=== PATIENT | female | born 1985 | race Asian ===

== ENCOUNTER 2020-11-24 16:41 | Emergency (ER) | payer OTHER ==
[~2020-11-24] VITALS: Ht 162.6 cm; Wt 64.5 kg
--- NOTE | 2020-11-24 18:30 | PHYS DOC ---
Past History Past Medical History: No Pertinent History (PRICE CORREA APRN) Past Surgical History: (PRICE CORREA APRN) Alcohol Use: None (PRICE CORREA APRN) General Adult EDM: Chief Complaint: VAGINAL BLEEDING HPI: HPI: Patient is a 35-year-old female who presents with vaginal bleeding and . Patient states her last menstrual period was September 25. Patient is G3, P2. Patient denies cramping.[] 35-year-old female who presents with vaginal bleeding and . LMP 09/25. G3, P2. Patient states the bleeding started 4 days ago. Patient denies dysuria, odor, discharge. Patient has history of high cholesterol. (PRICE CORREA APRN) Review of Systems: Review of Systems: Constitutional: Denies fever or chills Eyes: Denies change in visual acuity HENT: Denies nasal congestion or sore throat Respiratory: Denies cough or shortness of breath Cardiovascular: Denies chest pain or edema GI: Denies abdominal pain, nausea, vomiting, bloody stools or diarrhea /Vaginal: Reports bleeding. Denies dysuria Musculoskeletal: Denies back pain or joint pain Integument: Denies rash Neurologic: Denies headache, focal weakness or sensory changes Endocrine: Denies polyuria or polydipsia Lymphatic: Denies swollen glands Psychiatric: Denies depression or anxiety (PRICE CORREA APRN) Allergies: Allergies: Allergies Coded Allergies Type Severity Reaction Last Updated Verified ibuprofen Allergy Unknown 11/24/20 Yes (PRICE CORREA APRN) Physical Exam: PE: Constitutional: Well developed, well nourished, no acute distress, non-toxic appearance. [] HENT: Normocephalic, atraumatic, bilateral external ears normal, oropharynx moist, no oral exudates, nose normal. [] Eyes: PERRLA, EOMI, conjunctiva normal, no discharge. [] Neck: Normal range of motion, no tenderness, supple, no stridor. [] Cardiovascular:Heart rate regular rhythm, no murmur [] Lungs & Thorax: Bilateral breath sounds clear to auscultation [] Abdomen: Bowel sounds normal, soft, no tenderness, no masses, no pulsatile masses. [] Skin: Warm, dry, no erythema, no rash. [] Back: No tenderness, no CVA tenderness. [] Extremities: No tenderness, no cyanosis, no clubbing, ROM intact, no edema. [] Neurologic: Alert and oriented X 3, normal motor function, normal sensory function, no focal deficits noted. [] Psychologic: Affect normal, judgement normal, mood normal. [] (PRICE CORREA APRN) Current Patient Data: Vital Signs: Vital Signs Date Time Temp Pulse Resp B/P (MAP) Pulse Ox O2 Delivery O2 Flow Rate FiO2 11/24/20 17:19 98.0 89 16 123/79 (94) 97 Room Air (PRICE CORREA APRN) EKG: EKG: [] (PRICE CORREA APRN) Radiology/Procedures: Radiology/Procedures: []Exam: Ultrasound OB less than 14 weeks Indication: Bleeding and Technique: Real-time grayscale and color Doppler images of the pelvis were obt ained by the department central supply clerk. Comparisons: None FINDINGS: Uterus measures 10.8 x 8.1 x 6.8 cm. Within the endometrium there is a gestational sac which is round with internal yolk sac and pole. [place]-rump length measured at 1.1 corresponding to 7 weeks 2 days gestation. heart rate measured at 157 bpm. There is a moderate-sized perigestational bleed. Sonographic estimated due date is 07/11/2021 Right ovary measures 3.1 x 2.1 x 1.8 cm. Left ovary measures 2.5 x 1.9 x 4.2 cm. Vascular flow identified in the ovaries. IMPRESSION: 1. Single live intrauterine gestation measuring 7 weeks 2 days by current ultrasound. 2. Dedicated survey is recommended at 18-20 weeks gestation. Electronically signed by: Angel Mcmanus MD (11/24/2020 6:55 PM) [facility] (PRICE CORREA APRN) Heart Score: C/O Chest Pain: No Risk Factors: Risk Factors: DM, Current or recent (<one month) smoker, HTN, HLP, family history of CAD, obesity. Risk Scores: Score 0 - 3: 2.5% MACE over next 6 weeks - Discharge Home Score 4 - 6: 20.3% MACE over next 6 weeks - Admit for Clinical Observation Score 7 - 10: 72.7% MACE over next 6 weeks - Early Invasive Strategies (PRICE CORREA APRN) Course & Med Decision Making: Course & Med Decision Making Pertinent Labs and Imaging studies reviewed. (See chart for details) [] 35-year-old female who presents with vaginal bleeding and . LMP 09/25. G3, P2. Patient is denying abdominal pain. Transvaginal ultrasound ordered to rule out ectopic, miscarriage. Quant hCG ordered to obtain baseline level. Type and screen.Ultrasound shows single live intrauterine gestation measuring 7 weeks 2 days by current ultrasound. hCG 111,250. Instructed patient to follow-up with OB for further management. Strict return precautions for increasing abdominal pain, bleeding. Patient is appreciative and okay with discharge plan (PRICE CORREA APRN) Course & Med Decision Making Did not see or evaluate patient. Agree with CLOTH HAULER's work-up and disposition per note. (ANGELA PEREZ MD) Dragon Disclaimer: Dr[place]ra Disclaimer: This electronic medical record was generated, in whole or in part, using a voice recognition dictation system. (PRICE CORREA APRN) Departure Departure: Impression: Primary Impression: Vaginal bleeding in Disposition: HOME / SELF CARE / HOMELESS Condition: STABLE Referrals: THERON HERNANDEZ MD (PCP) Patient Instructions: Vaginal Bleeding During , [id number] Additional Instructions: You were seen in the emergency room for vaginal bleeding with . Your ultrasound showed a single live intrauterine gestation measuring 7 weeks 2 days. Please call your OB and set up an appointment for follow-up. Please return to the emergency room if you have increasing pain or bleeding. Quantitative beta hCG 111,250. EMERGENCY DEPARTMENT GENERAL DISCHARGE INSTRUCTIONS Thank you for coming to [facility] (ED) today and trusting us with you care. We trust that you had a positivie experience in our Emergency Department. If you wish to speak to the department management, you may call the director at [phone]. YOUR FOLLOW UP INSTRUCTIONS ARE FOLLOWS: 1. Do you have a private Doctor? If you do not have a private doctor, please ask for a resource list of physicians or clinics that may be able to assist you with follow up care. 2. The Emergency Physician has interpreted your x-rays. The X-Ray specialist will also review them. If there is a change in the findings, you will be notified in 48 hours when at all possible. 3. A lab test or culture has been done, your results will be reviewed and you will be notified if you need a change in treatment. ADDITIONAL INSTRUCTIONS AND INFORMATION: 1. Your care today has been supervised by a physician who is specially trained in emergency care. Many problems require more than one evaluation for a complete diagnosis and treatment. We recommend that you schedule your follow up appointment as recommended to ensure complete treatment of you illness or injury. If you are unable to obtain follow up care and continue to have a problem, or if your condition worsens, we recommend that you return to the ED. 2. We are not able to safely determine your condition over the phone nor are we able to give sound medical advice over the phone. For these safety reasons, if you call for medical advice we will ask you to come to the ED for further evaluation. 3. If you have any questions regarding these discharge instructions please call the ED at [phone]. SAFETY INFORMATION: In the interest of safety, wellness, and injury prevention; we encourage you to wear your sealbelt, if you smoke; quite smoking, and we encourage family to use a protective helmet for bicycling and other sporting events that present an increased risk for head injury. IF YOUR SYMPTOMS WORSEN OR NEW SYMPTOMS DEVELOP, OR YOU HAVE CONCERNS ABOUT YOUR CONDITION; OR IF YOUR CONDITION WORSENS WHILE YOU ARE WAITING FOR YOUR FOLLOW UP APPOINTMENT; EITHER CONTACT YOUR PRIMARY CARE DOCTOR, THE PHYSICIAN WHOSE NAME AND NUMBER YOU WERE GIVEN, OR RETURN TO THE ED IMMEDIATELY. PRICE CORREA APRN November 24, 2020 18:30 ANGELA PEREZ MD November 25, 2020 03:37
--- NOTE | 2020-11-24 18:58 | RAD ---
Exam: Ultrasound OB less than 14 weeks Indication: Bleeding and Technique: Real-time grayscale and color Doppler images of the pelvis were obtained by the department side stapler. Comparisons: None FINDINGS: Uterus measures 10.8 x 8.1 x 6.8 cm. Within the endometrium there is a gestational sac which is round with internal yolk sac and pole. [place]-rump length measured at 1.1 corresponding to 7 weeks 2 days gestation. heart rate measured at 157 bpm. There is a moderate-sized perigestational bleed . Sonographic estimated due date is 07/11/2021 Right ovary measures 3.1 x 2.1 x 1.8 cm. Left ovary measures 2.5 x 1.9 x 4.2 cm. Vascular flow identified in the ovaries. IMPRESSION: 1. Single live intrauterine gestation measuring 7 weeks 2 days by current ultrasound. 2. Dedicated survey is recommended at 18-20 weeks gestation. Electronically signed by: Angel Mcmanus MD (11/24/2020 6:55 PM) [place]
[2020-11-24 19:12] LABS: BASO # 0.1 x10^3/uL (0.0-0.2); BASO % 1 % (0-3); EOS # 0.4 x10^3/uL (0.0-0.7); EOS % 3 % (0-3); HEMATOCRIT 42.7 % (36.0-47.0); HEMOGLOBIN 14.3 g/dL (12.0-15.5); LYMPH # 3.2 x10^3/uL (1.0-4.8); LYMPH % 25 % (24-48); MEAN CORPUSCULAR HEMOGLOBIN 32 pg (25-35); MEAN CORPUSCULAR HGB CONC 33 g/dL (31-37); MEAN CORPUSCULAR VOLUME 95 fL (79-100); MONO # 1.3 x10^3/uL (0.0-1.1); MONO % 10 % (0-9); NEUT # 7.6 x10^3uL (1.8-7.7); NEUT % 61 % (31-73); PLATELET COUNT 268 x10^3/uL (140-400); RED BLOOD COUNT 4.52 x10^6/uL (3.50-5.40); RED CELL DISTRIBUTION WIDTH 13.2 % (11.5-14.5); WHITE BLOOD COUNT 12.5 x10^3/uL (4.0-11.0)
[2020-11-24 19:13] LABS: CALCIUM 9.3 mg/dL (8.5-10.1); CREATININE 0.6 mg/dL (0.6-1.0); GFR 113.1; POTASSIUM 3.8 mmol/L (3.5-5.1)
[2020-11-24 19:19] LABS: ALBUMIN 3.9 g/dL (3.4-5.0); TOTAL BILIRUBIN 0.3 mg/dL (0.2-1.0); TOTAL PROTEIN 7.9 g/dL (6.4-8.2)
[2020-11-24 19:21] LABS: BACTERIA,URINE 0 /HPF (0-FEW); BILIRUBIN,URINE NEG (NEG); CLARITY,URINE CLEAR; COLOR,URINE YELLOW; GLUCOSE,URINE NEG (NEG); NITRITE,URINE NEG (NEG); RBC,URINE 0 /HPF (0-2); SQUAMOUS EPITHELIAL CELL,UR OCC /LPF; UROBILINOGEN,URINE 0.2 mg/dL (0.2 mg/dL); WBC,URINE 0 /HPF (0-4)
[2020-11-24 19:42] VITALS: BP 118/80
== END 2020-11-24 20:17 | disposition home or self-care (01) ==
LOC: ER 16:41
DX: O46.91 Antepartum hemorrhage, unspecified, first trimester (principal); Z3A.01 Less than 8 weeks gestation of pregnancy; Z98.890 Other specified postprocedural states; Z88.6 Allergy status to analgesic agent
CPT/HCPCS: 36415; 76801; 80053; 81001; 81025; 84702; 85025; 86850; 86900; 86901; 99284